=== PATIENT | female | born 1980 | race Caucasian/White ===

== ENCOUNTER → 2019-11-01 | Outpatient (CLI) | payer OTHER ==
[~2019-11-01] MED LIST: AMBIEN 5 MG TABL5 M1 PO; CIPRO500 MG PO; ZOFRAN ODT4 MG PO
== END ==
LOC: M.RAD 09:52
PROVIDERS: ATTEND Nurse Practitioner Family
DX: Z12.31 Encounter for screening mammogram for malignant neoplasm of breast (principal)

== ENCOUNTER → 2019-11-07 | Outpatient (CLI) | payer OTHER | LOC: M.ULTRA 10:45 | PROVIDERS: ATTEND Nurse Practitioner Family | DX: N63.11 Unspecified lump in the right breast, upper outer quadrant (principal); N60.01 Solitary cyst of right breast; N60.02 Solitary cyst of left breast; N63.22 Unspecified lump in the left breast, upper inner quadrant ==

== ENCOUNTER → 2019-11-14 | Outpatient (CLI) | payer OTHER ==
[~2019-11-14] MED LIST changes: +SUMATRIPTAN SU100 MG PO; +TRAMADOL 50 MG50 MG PO; +ZOLPIDEM TARTRA10 MG PO
--- NOTE | 2019-11-23 12:06 | PATH ---
[address] [address] PATHOLOGY RPT PROCEDURE Name: PAT THEODORE Room: [facility]#: [id number] Admission: 11/14/19 Date of : 76 Discharge: Report #: [id number] Path Case #: [id number] [facility] Accession Number: [id number] . 01 Material submitted: . breast - RIGHT BREAST MASS, 10:00, 5CMFN. Modifiers: right, 10:00 . 01 Clinical history: . RIGHT BREAST MASS 3.39 x 3.48 x 2.80 cm . 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 - DUCTAL CARCINOMA IN SITU (DCIS), NUCLEAR GRADE III, COMEDO TYPE WITH "LOBULAR CANCERIZATION". SEE COMMENT. . . Surgical Pathology Cancer Case Summary . Protocol posting date: March 2019 . INVASIVE CARCINOMA OF THE BREAST: Biopsy . Procedure ___ Other (specify): Image-guided core biopsies . Specimen Laterality ___ Right . Tumor Site ___ Clock position: 10 o'clock ___ Distance from nipple: 5 cm . Tumor Size ___ Greatest dimension of largest invasive focus >1 mm: at least 16 mm . Histologic Type ___ Invasive carcinoma of no special type (ductal) . Histologic Grade (Juan Histologic Score) . Glandular (Acinar)/Tubular Differentiation ___ Score 3 (<10% of tumor area forming glandular/tubular structures) . Nuclear Pleomorphism ___ Score 3 (vesicular nuclei, often with prominent nucleoli, exhibiting marked variation in size and shape, occasionally [place] [address] PATHOLOGY RPT PROCEDURE Name: PAT THEODORE Room: [facility]#: [id number] Admission: 11/14/19 Date of : 76 Discharge: Report #: [id number] Path Case #: [id number] bizarre forms) . Mitotic Rate ___ Score 3 . Overall Grade ___ Grade 3 (scores of 8 or 9) . Ductal Carcinoma In Situ (DCIS) ___ Present . Architectural Patterns ___ Comedo . Nuclear Grade ___ Grade III (high) . Necrosis ____ Present, central (expansive "comedo" necrosis) . Lymphovascular Invasion ___ Present . Microcalcifications ___ Not identified . Ancillary Studies: . Biomarker Studies ___ Pending on A1 . (ARACELI:jacque; 11/15/2019) QMS 11/15/2019 1418 Local . 02 Comment: Approximately 95% of the submitted tissues are involved by invasive neoplasm. Breast tumor profile studies are pending on A1 and will be the subject of an addendum report. Reviewed with Dr. Jeremy Segal, who agrees with the diagnosis. Patricia (acting [facility] Breast Navigator) notified at approximately 1150 on 11/15/2019. . (ARACELI:jacque; 11/15/2019) . 02 Addendum: . Special studies report received from [facility], [address] [place] [address], [address], [place], [address], on case [id number], labeled with their number [id number], dated 11/19/2019. [place] [address] PATHOLOGY RPT PROCEDURE Name: PAT THEODORE [id number] Admission: 11/14/19 Date of : 76 Discharge: Report #: [id number] Path Case #: [id number] Breast/Prognostic Marker Analysis . Specimen Site: Rt Breast Mass, 10:00, 5 CmFN, Image-Guided Core Biopsies, Breast Cancer Specimen ID #: [id number] . ER (Estrogen Receptor) Present/Positive Percent: 2.00% Analysis: Manual Comments: Staining intensity: Weak The carcinoma in this sample has a low level (1-10%) of ER expression by IHC. There are limited data on the overall benefit of endocrine therapies for patients with low level (1-10%) ER expression, but they currently suggest possible benefit, so patients are considered eligible for endocrine treatment. There are data that suggest invasive cancers with these results are heterogeneous in both behavior and biology and often have gene expression profiles more similar to ER-negative cancers. Case reviewed with Dr Zeynep Cisneros with concurrence. . . MO (Progesterone Receptor) Absent/Negative Percent: 0.00 Analysis: Manual . HER2 Not Over-Expressed Score: 1+ Analysis: Manual . Ki-67 High Proliferation Percent: 80.00% Analysis: Manual . Time to Fixation (Cold Ischemic Time): Immediately Duration of Fixation: Between 6 and 72 hours Type of Fixative: 10% Neutral Buffered Formalin . . Comments: ER/PgR testing at [facility] is performed in compliance with the ASCO/CAP Clinical Practice Guidelines. If the result for ER is less than 1% it is reported as Negative; if the ER result is 1-10% it is reported as Low Positive; if the ER result is greater than 10% it is reported as Positive. If the result for PgR is less than 1% it is reported as Negative; if the PgR result is equal to or greater than 1%, it [place] [address] PATHOLOGY RPT PROCEDURE Name: PAT THEODORE Room: [facility] Jeremias#: [id number] Admission: 11/14/19 Date of : 76 Discharge: Report #: [id number] Path Case #: [id number] . REF: Rona KH, Niraj EH, et al: Estrogen and Progesterone Receptor Testing in Breast Cancer. ASCO/CAP Guideline Update. DOI 10.5858/arpa.1450-3788-OD. . Whole slide image capture is performed using [employer]) platform. Image analysis, if ordered, is performed using [employer] software. . at [employer]. Swapnil Aviles MD Pathologist . Methodology The HER2 Receptor protein expression is analyzed using the [place] HER2 rabbit monoclonal antibody (clone 4B5). This assay is used for diagnostic determination of the HER2 protein over-expression in paraffin embedded, formalin fixed breast cancer tissue on the [place] Benchmark. The specimen is processed using a secondary antibody-HRP conjugate detection system. The membrane staining of the tumor is determined either by manual score or image analysis. This antibody is intended for in vitro diagnostic use. The score is reported as 0, 1+, 2+, or 3+. This test is used for clinical purposes. . A rabbit monoclonal antibody (clone SP1) that recognized the Estrogen Receptor is used to perform immunohistochemistry on routinely fixed (formalin) paraffin embedded tissue on the [place] Benchmark. The specimen is processed using a secondary antibody-HRP conjugate detection system. The percentage of stained tumor nuclei is determined either manually or by image analysis. This test is intended for in vitro diagnostic use. This test is used for clinical purposes. . A rabbit monoclonal antibody (clone 1E2) that recognized the Progesterone Receptor is used to perform immunohistochemistry on routinely fixed (formalin) paraffin embedded tissue on the [place] Benchmark. The specimen is processed using a secondary antibody-HRP conjugate detection system. The percentage of stained tumor nuclei is determined either manually or by image analysis. This test is intended for in vitro diagnostic use. This test is used for clinical purposes. . A rabbit monoclonal antibody (clone 30-9) that recognized Ki67 is used to perform immunohistochemistry on routinely fixed (formalin) paraffin embedded tissue on the [place] Benchmark. The specimen is processed using a secondary antibody-HRP conjugate detection system. The percentage of stained tumor nuclei is determined either manually or by image analysis. This test is intended for in vitro diagnostic use. This test is used for [place] [address] PATHOLOGY RPT PROCEDURE Name: PAT THEODORE Room: [facility]#: [id number] Admission: 11/14/19 Date of : 76 Discharge: Report #: [id number] Path Case #: [id number] Intended Use: This antibody is intended for in vitro diagnostic (IVD) use. HER2 (4B5) is a rabbit monoclonal antibody intended for the semi-quantitative detection of HER2 antigen in sections of formalin-fixed, paraffin embedded normal and neoplastic tissue. . This antibody is intended for in vitro diagnostic (IVD) use. Estrogen Receptor (ER) (SP1) is a rabbit monoclonal antibody (IgG) that is intended for the qualitative detection of estrogen receptor (ER) antigen in sections of formalin-fixed, paraffin-embedded tissue. ER is a rabbit monoclonal antibody that recognizes human estrogen receptor alpha. . This antibody is intended for in vitro diagnostic (IVD) use. Progesterone Receptor (MO) (1E2) is a rabbit monoclonal antibody (IgG) that is intended for the qualitative detection of progesterone receptor (MO) antigen in sections of formalin fixed, paraffin embedded tissue. MO is a rabbit monoclonal antibody that recognizes the A and B forms of the human progesterone receptor. . This antibody is intended for in vitro diagnostic (IVD) use. Ki-67 (30-9) is a rabbit monoclonal antibody (IgG) directed against C-terminal portion of Ki-67 antigen. Staining for Ki-67 can be used to aid in assessing the proliferative activity of normal and neoplastic tissue. Ki-67 is a nuclear protein expressed in proliferating cells. During the cell cycle, the Ki-67 antigen is present in the G1, S, G2 and M phase but is absent in the G0 (quiescent phase). . . Disclaimer: This Test was performed by [facility] at [address], [place] [address], [place], [address]. . [facility] is a business unit of [employer] a wholly-owned subsidiary of [employer]. . This assay has not been validated on decalcified tissues. Results should be interpreted with caution if this specimen was decalcified given the likelihood of false negativity on decalcified specimens. . Any image(s) that accompany this report is/are a telemarketing sales representative image(s) only and should not be used to render a diagnosis. . This interpretation is contingent on the specimen and the clinical information received. . For any special tests/stains performed, known positive cells or tissues are tested with each marker and examined to ensure positivity. Positive and negative internal controls, if present[place] [address] PATHOLOGY RPT PROCEDURE Name: PAT THEODORE Room: [facility]#: [id number] Admission: 11/14/19 Date of : 76 Discharge: Report #: [id number] Path Case #: [id number] . This analysis is an adjunct to the evaluation of the referring physician and does not represent a final diagnosis. . The immunohistochemistry tests performed at [facility] [email or web address] were validated on tissue fixed in 10% neutral buffered formalin. The performance characteristics of the tests performed on tissue processed in other fixatives is not known. . HER2 testing at [facility] is performed in compliance with the 2018 updated ASCO/CAP Clinical Practice Guideline Focused Update. If the result is EQUIVOCAL (2+), it must be confirmed by an alternative assay such as FISH or Dual LEXI. REF: Karin CHOUDHURY, ELIJAH Healy et al: Human Epidermal Growth Factor Receptor 2 Testing in Breast Cancer: ASCO/CAP Clinical Practice Guideline Focused Update. J Clin Oncol 36:3165-9464, 2018. . HER2 and ER/MO ASCO/CAP guidelines require fixation in neutral buffered formalin for a minimum of 6 and a maximum of 72 hours. Fixation times less than 6 hours may not adequately preserve cell proteins. Fixation times longer than 72 hours may cause excess cross-linking of proteins reducing the antigen available for staining. Either scenario can cause reduced staining; hence false negative results are possible and should be considered for these situations if the HER2 IHC score is less than 3+ or ER or MO is negative (no staining or <1% positive). It is recommended that specimens fixed longer than 72 hours with HER2 IHC scores less than 3+ be confirmed by HER2 FISH or Dual LEXI. The time from biopsy/excision to fixation in formalin (cold ischemic time) must be less than 1 hour. Time to fixation (cold ischemic time) greater than 1 hour should be interpreted with caution. HER2 testing, mainly HER2 by FISH, is particularly vulnerable since excessive cold ischemic time results in preferential loss of HER2 probe signals that may lead to false negative results. . SCORE STAINING PATTERN IN TUMOR CELLS INTERPRETATION RESULTS 0 No staining observed or incomplete, faint membrane staining in less than or equal to 10% of tumor cells. Negative 1+ Incomplete, faint membrane staining in greater than 10% of tumor cells. Negative 2+ Weak to moderate complete membrane staining observed in greater than 10% of tumor cells. Equivocal* *Must be confirmed by alternative assay (IHC/FISH/Dual LEXI) 3+ Intense, complete membrane staining in greater than 10% [place] [address] PATHOLOGY RPT PROCEDURE Name: PAT THEODORE Room: [facility]#: [id number] Admission: 11/14/19 Date of : 76 Discharge: Report #: [id number] Path Case #: [id number] Positive . A complete copy of the report is on file. . Professional and Technical services performed by [facility] at [address] [address]. . (ARACELI:[facility] 11/20/2019) . [facility]/11/20/2019 Addendum Electronically Signed by Cecilio Cooper MD, Pathologist . 02 Diagnosis provided by: . Cecilio Cooper MD, Pathologist NPI- [id number] . 03 Electronically signed: . Cecilio Cooper MD, Pathologist NPI- [id number] . 01 Gross description: . The specimen is received in formalin, labeled "Pat Theodore, right breast biopsy 10:00 5cfn" and consists of 4 needle cores of pink-carvalho tissue measuring between 0.7 and 2.0 cm in length and 0.2 cm each in diameter which are entirely submitted in A1-A3. They were collected at 8:55 AM on 11/14/2019 and placed in formalin at 8:55 AM. The cold ischemic time is less than 1 minute and the total formalin fixation time is greater than 6 hours less than 72 hours. (SDY; 11/14/2019) SYU/SYU 11/15/2019 1153 Local . 02 Pathologist provided ICD-10: C50.911, D05.11 . 02 CPT . 430578 Specimen Comment: A courtesy copy of this report has been sent to [phone], [phone] Specimen Comment: [phone], Specimen Comment: Report sent to ,DR PRADO / DR RODRIGUEZ Performed at: [address], [place], [place] [id number] MD Yuval Aiken MD Phone: [phone] Performed at: [address] [address] [place], [place] [id number] MD Cecilio Cooper MD Phone: [phone] Performed at: [address] [address] PATHOLOGY RPT PROCEDURE Name: PAT THEODORE Room: [facility]#: [id number] Admission: 11/14/19 Date of : 76 Discharge: Report #: [id number] Path Case #: [id number] [address] [id number] MD Cecilio Cooper MD Phone: [phone]
== END ==
LOC: M.ULTRA 08:03
PROVIDERS: ATTEND Nurse Practitioner Family
DX: C50.911 Malignant neoplasm of unspecified site of right female breast (principal); R92.1 Mammographic calcification found on diagnostic imaging of breast

== ENCOUNTER → 2019-11-26 | Outpatient (CLI) | payer OTHER ==
--- NOTE | 2019-11-26 12:57 | 2DMMODE ---
[place] [address] 2 D/M-MODE ECHOCARDIOGRAM Name: JAN LEON Room: [facility]#: [id number] Admission: 11/26/19 Attend Phys: Keyon Alexis MD Discharge: Date of : 76 Date of Service: 11/26/19 1256 Report #: [id number] THIS REPORT FOR: cc: LEONID PRADO NP, KATHERINE J. NP Holkins, John M. MD [facility] ~ APPROVED REPORT Study performed: 11/26/2019 09:16:41 EXAM: Comprehensive 2D, Doppler, and color-flow Echocardiogram Patient Location: Out-Patient BSA: 1.83 HR: 72 bpm BP: 110/70 mmHg Other Information Study Quality: Good Indications Chemo 2D Dimensions IVSd: 8.75 (7-11mm) LVOT Diam: 20.40 (18-24mm) LVDd: 40.65 mm PWd: 8.16 (7-11mm) Ascending Ao: 27.64 (22-36mm) LVDs: 23.75 (25-40mm) Aortic Root: 24.27 mm Volumes Left Atrial Volume (Systole) LA ESV Index: 11.80 mL/m2 Aortic Valve AoV Peak Ari.: 1.01 m/s AO Peak Gr.: 4.12 mmHg LVOT Max P.72 mmHg AO Mean Gr.: 2.12 mmHg LVOT Mean P.73 mmHg LVOT Max V: 0.96 m/s AO V2 VTI: 19.39 cm LVOT Mean V: 0.60 m/s REMEDIOS (VTI): 3.29 cm2 LVOT V1 VTI: 19.53 cm Mitral Valve E/A Ratio: 1.15 [place] [address] 2 D/M-MODE ECHOCARDIOGRAM Name: JAN LEON Room: [facility]#: [id number] Admission: 11/26/19 Attend Phys: Keyon Alexis MD Discharge: Date of : 76 Date of Service: 11/26/19 1256 Report #: [id number] MV Decel. Time: 221.70 ms MV E Max Ari.: 0.54 m/s MV PHT: 64.29 ms MVA (PHT): 3.42 cm2 TDI E/Lateral E': 3.18 E/Medial E': 4.50 Medial E' Ari.: 0.12 m/s Lateral E' Ari.: 0.17 m/s Pulmonary Valve PV Peak Ari.: 0.76 m/s PV Peak Gr.: 2.30 mmHg Tricuspid Valve RAP Estimate: 5.00 mmHg TR Peak Gr.: 21.57 mmHg RVSP: 26.57 mmHg PA Pressure: 26.57 mmHg Left Ventricle The left ventricle is normal size. There is normal LV segmental wall motion. There is normal left ventricular wall thickness. Left ventricular systolic function is normal. The left ventricular ejection fraction is within the normal range. LVEF is 55-60%. The left ventricular diastolic function is normal. Right Ventricle The right ventricle is normal size. The right ventricular systolic function is normal. Atria The left atrium size is normal. The right atrium size is normal. Aortic Valve The aortic valve is normal in structure. No aortic regurgitation is present There is no aortic valvular stenosis. Mitral Valve The mitral valve is normal in structure. Trace mitral regurgitation. No evidence of mitral valve stenosis. Tricuspid Valve The tricuspid valve is normal in structure. There is no tricuspid valve regurgitation noted[place] [address] 2 D/M-MODE ECHOCARDIOGRAM Name: EDWARDKIMJAN A Room: [facility]#: [id number] Admission: 11/26/19 Attend Phys: Keyon Alexis MD Discharge: Date of : 76 Date of Service: 11/26/19 1256 Report #: [id number] The pulmonary valve is normal in structure. There is no pulmonic valvular regurgitation. Great Vessels The aortic root is normal in size. IVC is normal in size and collapses >50% with inspiration. Pericardium There is no pericardial effusion. <Conclusion> The left ventricle is normal size. There is normal left ventricular wall thickness. Left ventricular systolic function is normal. The left ventricular ejection fraction is within the normal range. LVEF is 55-60%. The left ventricular diastolic function is normal. The left atrium size is normal. The aortic valve is normal in structure. The mitral valve is normal in structure. Trace mitral regurgitation. The tricuspid valve is normal in structure. IVC is normal in size and collapses >50% with inspiration. There is no pericardial effusion. There is normal LV segmental wall motion. <ELECTRONICALLY SIGNED> By: Adelso Stout MD, FACC 11/26/19 1256 1256 1256 Adelso Stout MD, FACC /INF
== END ==
LOC: M.CRD 09:00
PROVIDERS: ATTEND Internal Medicine Hematology & Oncology
DX: Z01.812 Encounter for preprocedural laboratory examination (principal); Z20.828 Contact with and (suspected) exposure to other viral communicable diseases; C50.919 Malignant neoplasm of unspecified site of unspecified female breast; I74.9 Embolism and thrombosis of unspecified artery; Z51.81 Encounter for therapeutic drug level monitoring

== ENCOUNTER → 2019-11-27 | Outpatient (CLI) | payer OTHER | LOC: M.MRI 13:30 | PROVIDERS: ATTEND Surgery | DX: C50.919 Malignant neoplasm of unspecified site of unspecified female breast (principal); N63.11 Unspecified lump in the right breast, upper outer quadrant ==

== ENCOUNTER → 2019-11-29 | Day surgery (SDC) | payer OTHER ==
[2019-11-29 09:10] LABS: HEMATOCRIT 35.3 % (37.0-47.0); HEMOGLOBIN 11.8 gm/dL (12.0-15.0)
--- NOTE | 2019-11-30 13:44 | OP ---
[address] [address] OPERATIVE REPORT Name: PADMINIXIAOJAN Room: [facility]#: [id number] Admission: 11/29/19 Attend Phys: Andressa Mchugh DO Discharge: Date of : 76 Report #: [id number] THIS REPORT FOR: //name// cc: LEONID PRADO NP, KATHERINE J. NP ~ CC: Andressa PRADO NP DICTATED BY: Wilbur Morrell DO DATE OF SERVICE: 11/29/2019 PREOPERATIVE DIAGNOSIS: Triple negative breast cancer. POSTOPERATIVE DIAGNOSIS: Triple negative breast cancer. SURGEON: Andressa Mchugh DO MARKING ROOM SUPERVISOR: Wilbur Morrell, PGY5 and [place] MS3. OPERATION PERFORMED: Left internal jugular port placement with ultrasound and fluoroscopic guidance and surgeon interpretation of images. ANESTHESIA: General and local. ESTIMATED BLOOD LOSS: 10 mL. SPECIMEN: None. COMPLICATIONS: None. FLUOROSCOPY TIME: 48 seconds. INDICATIONS: The patient is a 38-year-old female with a recent diagnosis of triple negative breast cancer of the right breast. Due to her negative hormone status, she will be scheduled for preoperative neoadjuvant chemotherapy for this reason. She was informed of the risks and benefits of port placement with risks including but not limited to bleeding, infection, pneumothorax, arterial access. She understood these risks and decided to proceed with surgery. TECHNIQUE: After informed consent was obtained, the patient was brought to the operating room and placed in supine position. SCDs were on and running. Preoperative antibiotics were given. The patient was prepped and draped in the usual sterile fashion. A surgical pause was held to confirm proper patient and procedure. 0.5% Marcaine was injected at the left neck. [place] [address] OPERATIVE REPORT Name: JAN LEON Room: [facility]#: [id number] Admission: 11/29/19 Attend Phys: Andressa Mchugh DO Discharge: Date of : 76 Report #: [id number] to access the left internal jugular vein. A guidewire was inserted through the needle. The needle was removed and the wire was checked with fluoroscopy and had gone down the jugular vein and transversed across to the right subclavian. Under fluoroscopic guidance, the wire was withdrawn and redirected towards the superior vena cava. The left chest port was then planned. Planned incision site was injected with 0.5% Marcaine, #15 blade was used to create a 3 cm incision in a transverse fashion. Cautery was used for hemostasis. The port was bluntly developed to an adequate size to accommodate the port. 0 Prolene was then used to place stitches through the right and left sides of the port to secure in place. An 11 blade was used to create a skin incision over the wire and the left neck. The sheath was placed over the wire and confirmed with fluoroscopy. The 8-Georgian Groshong catheter was then inserted through the sheath. The breakaway catheter was removed maintaining the Groshong catheter in placed. The Groshong catheter was then tunneled from the neck over the clavicle to the created pocket. The catheter was then removed under live fluoroscopic guidance until the tip of the catheter was at the cavoatrial junction. The excess catheter tubing was then cut. The catheter was placed onto the port and the hub was secured. The port flushed and aspirated without any difficulties. The complete path of the port was visualized with fluoroscopy and confirmed to be in excellent position with no kinks. The port was then placed within the pocket. The 0 Prolene stitches were tied down. The port was flushed with 3 mL of 500 units per mL heparin. The wound was then closed in layered fashion using 3-0 Vicryl, 4-0 Monocryl. A 0.5% Marcaine was injected. The wound was then cleansed and dressed with Dermabond. The patient was emerged from anesthesia and transferred to PACU in stable condition. A confirmatory chest x-ray was obtained. All counts were correct. There were no complications. <ELECTRONICALLY SIGNED> By: Andrsesa Mchugh DO 11/30/19 1344 1136 1240Chjaneth Mchugh DO /nt
== END | disposition home or self-care (01) ==
LOC: M.SUR 08:16
PROVIDERS: ATTEND Surgery
DX: Z45.2 Encounter for adjustment and management of vascular access device (principal); C50.912 Malignant neoplasm of unspecified site of left female breast; Z79.899 Other long term (current) drug therapy; Z87.440 Personal history of urinary (tract) infections; Z85.3 Personal history of malignant neoplasm of breast

== ENCOUNTER → 2020-04-28 | Outpatient (CLI) | payer OTHER ==
[~2020-04-28] MED LIST changes: +EMERGEN-C 500500 MG PO; +FLONASE 0.05%50 MCG INH; +LOPRESSOR50 MG PO; +OXYCODONE HCL 55 MG PO; +ZYRTEC10 M4 PO
== END | disposition home or self-care (01) ==
LOC: M.LAB 09:10 → M.ULTRA 09:10
PROVIDERS: ATTEND Surgery
DX: N63.10 Unspecified lump in the right breast, unspecified quadrant (principal); M79.89 Other specified soft tissue disorders; Z98.890 Other specified postprocedural states; Z79.899 Other long term (current) drug therapy; Z85.3 Personal history of malignant neoplasm of breast; Z20.822 Contact with and (suspected) exposure to COVID-19

== ENCOUNTER → 2020-05-01 | Day surgery (SDC) | payer OTHER ==
--- NOTE | 2020-05-01 10:21 | EKG ---
[place] [address] ELECTROCARDIOGRAM REPORT Name: JAN LEON Room: [facility]#: [id number] Admission: 05/01/20 Attend Phys: Andressa Mchugh, Discharge: Date of : 76 Date of Service: 05/01/20 0739 Report #: [id number] THIS REPORT FOR: //name// [facility] Test Date: 2020-05-01 Test Time: 07:39:19 Pat Name: JAN LEON Department: Room: Gender: F Director Federal: : 1980 Requested By: Damian Mccoy Order Number: [id number] Walt MD: Jason Whaley Measurements Intervals [place] Rate: 76 P: 67 VA: 203 QRS: 28 QRSD: 73 T: 59 QT: 356 QTc: 401 Interpretive Statements Sinus rhythm Borderline prolonged VA interval Compared to ECG 02/08/2016 18:06:54 Sinus tachycardia no longer present Electronically Signed On 05-01-2020 10:21:14 CDT by Jason Whaley [email or web address] <ELECTRONICALLY SIGNED> By: Jason Whaley MD, [facility] 05/01/20 1021 0739 0739 Jason Whaley MD, [facility] /EPI
--- NOTE | 2020-05-01 15:05 | OP ---
[address] [address] OPERATIVE REPORT Name: JAN LEON Micheal Room: [facility]#: [id number] Admission: 05/01/20 Attend Phys: Andressa Mchugh DO Discharge: Date of : 76 Report #: [id number] THIS REPORT FOR: cc: LEONID PRADO NP, KATHERINE J. NP ~ Andressa Mchugh DO DICTATED BY: Wilbur Morrell DO DATE OF SERVICE: 05/01/2020 PREOPERATIVE DIAGNOSIS: Right breast triple negative breast cancer, status post adjuvant chemotherapy. POSTOPERATIVE DIAGNOSIS: Right breast triple negative breast cancer, status post adjuvant chemotherapy. FINDINGS: Hologic tag in the right breast approximately 1 mm from the fascia. Fascia was marked with 3 small clips on the pectoral fascia. Scintigraphic uptake at the nipple was 7800. Scintigraphic uptake on the sentinel lymph node was 289. Second node was blue, but not Scintigraphically hot. SURGEON: Andressa Mchugh DO CO-SURGEON: Wilbur Morrell, PGY5 BUILDING CUSTODIAL SUPERVISOR: MS Gregoria3. OPERATION PERFORMED: Right breast tag-guided lumpectomy and right superficial sentinel lymph node dissection. ANESTHESIA: General, local. ESTIMATED BLOOD LOSS: 20 mL. SPECIMEN: Right breast lumpectomy and right sentinel lymph node x2. COMPLICATIONS: None. CONDITION: Stable. DISPOSITION: PACU to home. INDICATIONS: The patient is a 39-year-old female with history of right breast triple negative breast cancer. She was given a Port-A-Cath and received neoadjuvant chemotherapy. She represented after imaging for breast conservation [address] [address] OPERATIVE REPORT Name: KIM LEONPRO Burton Room: [facility]#: [id number] Admission: 05/01/20 Attend Phys: Andressa Mchugh DO Discharge: Date of : 76 Report #: [id number] therapy. She was informed of the risks and benefits of lumpectomy and sentinel lymph node biopsy with risks including but not limiting to bleeding, infection, need for margin reexcision. She understood these risks and decided to proceed with surgery. TECHNIQUE: After informed consent was obtained, the patient was brought to the operating room and placed in supine position. SCDs were on and running. Preoperative antibiotics were given. General anesthesia was administered with ET tube. The patient had Lymphazurin blue injected circumferentially around the right nipple. The patient was then reprepped and draped in the usual sterile fashion. A surgical pause was held to confirm proper patient and procedure. The NEON Concierge guided system was used to plan incision. A right periareolar curvilinear incision was planned. The 0.5% Marcaine was injected at the incision site. A #15 blade was used to make the skin incision. Dissection was carried through the subcutaneous fat using cautery. The NEON Concierge radio-guided tag system was used to guide dissection towards the seed, circumferential dissection around the seed was performed using cautery. Dissection was carried down to the level of the pectoral fascia on the deep margin. The tag itself was only about 1 mm from the fascia. The deep margin was right along the fascia. Once completely circumferentially around the specimen was transected and maintained in orientation, a short stitch was placed superior and a long stitch placed lateral to orient the specimen. This was placed in a TransPec container and sent to Radiology, which confirmed both the clip and the hologic seed were present in the specimen. This wound was irrigated and temporarily packed while the sentinel lymph node biopsy was performed. The Neoprobe was used to plan the incision site. A #15 blade was used to create the curvilinear incision in the right axilla after 0.5% Marcaine injection. Combination of cautery and blunt dissection were used to dissect into the axilla after the clavipectoral fascia was opened. The Neoprobe was used to guide dissection. Once the hot node was identified, it was grasped with an Allis and carefully dissected free from the surrounding tissue. There were 2 nodes obtained. The first node had an uptake of a maximum of 289. The second node did not have any uptake though was blue, both were sent separately as specimen. The axilla was irrigated. It was hemostatic. Both of the wound cavities were filled with FloSeal. They were closed in a layered fashion using 3-0 Vicryl, 4-0 Monocryl. Wounds were both cleansed and dressed with Dermabond. The patient was emerged from anesthesia and transferred to PACU in stable condition. All counts were correct. <ELECTRONICALLY SIGNED> By: Andressa Mchugh DO 05/01/20 1505 1138 1227Chjaneth Mchugh DO /nt
--- NOTE | 2020-05-06 12:07 | PATH ---
[address] [address] PATHOLOGY RPT PROCEDURE Name: PAT THEODORE Room: [facility]#: [id number] Admission: 05/01/20 Date of : 76 Discharge: Report #: [id number] Path Case #: [id number] [facility] Accession Number: [id number] . 01 Material submitted: . PART A: breast - RIGHT BREAST . Modifiers: right PART B: lymph node - SENTINEL LYMPH NODE #1 RIGHT BREAST. Modifiers: #1, BREAST, right PART C: lymph node - SENTINEL LYMPH NODE #2 RIGHT BREAST. Modifiers: #2, BREAST, right . 01 Clinical history: . TRIPLE NEGATIVE MALIGNANT NEOPLASM RIGHT BREAST DS/LUMPECTOMY . 02 Diagnosis: A. Right breast: - Breast tissue with evidence of prior biopsy site including localization clip, features attributable to therapy including scattered histiocytes in association with fibrosis, usual duct epithelial hyperplasia, duct ectasia, focal chronic inflammation, incidental capillary hemangioma and scattered luminal calcifications with no residual malignancy or atypia. See comment. . B. [place] lymph node #1 right breast: - One benign lymph node. See comment. . C. [place] lymph node #2 right breast: - Two benign lymph nodes (0/2). See comment. (ARACELI:[facility] 05/05/2020) QTP 05/05/2020 1800 Local . 02 Comment: This patient had a right breast mass 10:00 5 cm from nipple image guided core biopsy performed around 11/14/2019 which showed infiltrating ductal adenocarcinoma, high-grade, with lymphovascular invasion and breast tumor profile studies showed: ER 2%, KS 0, Her2 1+/not over expressed, Ki-67 80% ([phone]) and per review of Dr. Gala Mchugh's operative report dated 05/01/2020, the patient received post-adjuvant chemotherapy. . There is no residual malignancy or atypia in the lumpectomy specimen (A) and there is no histologic evidence of current or remote involvement of any of the three lymph nodes (B and C). Properly controlled keratin AE1/AE3 immunohistochemical stains performed on B1 and C1 are negative for metastatic tumor. (ARACELI:[facility] 05/05/2020) . 02 Electronically signed: [place] [address] PATHOLOGY RPT PROCEDURE Name: PAT THEODORE Room: [facility] DarianSudheer#: [id number] Admission: 05/01/20 Date of : 76 Discharge: Report #: [id number] Path Case #: [id number] Cecilio Cooper MD, Pathologist NPI- [id number] . 01 Gross description: . A. Fixative: Formalin Labeled: Right breast-short stitch superior long stitch lateral Specimen received: Burciaga-yellow lobular lumpectomy specimen Oriented: Yes, short stitch superior long stitch lateral Dimensions: 4.4 cm from superior to inferior, 6.9 cm from medial to lateral, and 1.6 cm from anterior to posterior Weight: 29 The specimen is inked as follows: superior-red inferior-blue anterior-green posterior-black lateral-orange medial-yellow Sectioned from: Lateral to medial Number of slices: 16 Lesion: 2.8 x 2.4 x 1.1 cm Lesion location: Slices 4-10 Lesion to margins: 0.4 cm to superior 1.1 cm to inferior 0.9 cm to anterior 0.2 cm to posterior 1.8 cm to lateral 2.4 cm to medial Biopsy clip: Court Magistrate clip Yes, slice 5 Uninvolved breast parenchyma: Minimal lobular, burciaga-yellow with abundant burciaga-white fibrous breast parenchyma with scattered possible calcifications located in slices 7-16 . The specimen is entirely submitted as follows: A1-A4. Slice 1 (lateral perpendicular margin) A5-A6. Slice 2 A7-A8. Slice 3 A9-A10. Slice 4 A11-A12. Slice 5 A13-A 14. Slice 6 A15-A16. Slice 7 A17-A18. Slice 8 A19-A20. Slice 9 A21-A22. Slice 10 A23-A24. Slice 11 A25-A26. Slice 12 A27-A28. Slice 13 A29-A30. Slice 14 [place] [address] PATHOLOGY RPT PROCEDURE Name: PAT THEODORE Room: [facility]#: [id number] Admission: 05/01/20 Date of : 76 Discharge: Report #: [id number] Path Case #: [id number] A31-A32. Slice 15 A33-A35. Slice 16 (medial perpendicular margin) . . The specimen is removed from the patient at 1025 and not stated when placed in formalin on May 01, 2020. The specimen is removed from formalin at 1850 on May 02, 2020. The specimen is in formalin for greater than 6 hours and less than 72 hours. . B. Received in formalin labeled "Pat Theodore, sentinel lymph node #1 right breast" is an irregular, burciaga-yellow portion of fibrous tissue measuring 2.1 x 1.1 x 0.7 cm. The specimen is palpated to reveal an irregular, burciaga yellow possible lymph node measuring 1.4 x 1.1 x 0.6 cm. The possible lymph node is serially sectioned perpendicular to long axis and submitted entirely in cassette B1. . C. Received in formalin labeled "Pat Theodore, sentinel lymph node #2 right breast" is an irregular, burciaga-yellow portion of fibroadipose tissue measuring 2.1 x 1.1 x 0.5 cm. The specimen is palpated to reveal 2 possible lymph nodes measuring 1.1 x 0.9 x 0.7 cm and 1.1 x 0.7 x 0.4 cm.. One possible lymph node is inked black and the other is inked blue. Each possible lymph node is serially sectioned perpendicular to long axis and submitted entirely in cassette C1.([facility]; 05/02/2020) GZA/GZA 05/05/2020 1752 Local . 02 Pathologist provided ICD-10: N60.31, N60.42, N61.0 . 02 CPT . 148996, 653798, 988620, J40356 Specimen Comment: A courtesy copy of this report has been sent to [phone] Specimen Comment: [phone] Specimen Comment: Report sent to / DR PRADO Performed at: [address], [place], [place] [id number] MD Anjel Art MD Phone: [phone] Performed at: [address] [facility] [address] [address] [place], [place] [id number] MD Cecilio Cooper MD Phone: [phone]
== END | disposition home or self-care (01) ==
LOC: M.SUR 06:39
PROVIDERS: ATTEND Surgery
DX: N60.31 Fibrosclerosis of right breast (principal); N60.42 Mammary duct ectasia of left breast; N61.0 Mastitis without abscess; R59.0 Localized enlarged lymph nodes; D18.09 Hemangioma of other sites; Z98.890 Other specified postprocedural states; Z79.899 Other long term (current) drug therapy

== ENCOUNTER → 2020-06-19 | Day surgery (SDC) | payer OTHER ==
--- NOTE | 2020-06-20 15:24 | OP ---
[address] [address] OPERATIVE REPORT Name: JAN LEON Micheal Room: [facility]#: [id number] Admission: 06/19/20 Attend Phys: Andressa Mchugh DO Discharge: Date of : 76 Report #: [id number] THIS REPORT FOR: cc: LEONID PRADO NP, KATHERINE J. NP Brock, Christie M. DO ~ DOC #: [id number] Dictated by Wilbur Morrell DO DATE OF SURGERY: 06/19/2020 PREOPERATIVE DIAGNOSIS: Port-A-Cath. POSTOPERATIVE DIAGNOSIS: Port-A-Cath. FINDINGS: Bard 8-Prydeinig Groshong port in the left chest with catheter tip intact. SURGEON: Andressa Mchugh DO CO-SURGEON: Wilbur Morrell, PGY5 FINANCIAL ASSISTANCE ADVISOR: MS [id number] OPERATION PERFORMED: Port removal. ANESTHESIA: General and local. ESTIMATED BLOOD LOSS: 2 mL. SPECIMEN: Port not sent for pathology. COMPLICATIONS: None. DISPOSITION: PACU to home. INDICATIONS: The patient is a 39-year-old female with history of triple negative breast cancer that was treated with neoadjuvant chemotherapy. She was no longer using her port and wished for removal. This was cleared by Oncology. She was informed of the risks and benefits of port removal and decided to proceed with surgery. DESCRIPTION OF PROCEDURE: After informed consent was obtained, the patient was brought to the operating room and placed in the supine position. SCDs were on and running. Preoperative antibiotics were given. Anesthesia was administered with an LMA. The patient was prepped and draped in the usual sterile fashion. A surgical pause was held to confirm proper patient and procedure. The previous [address] [address] OPERATIVE REPORT Name: JAN LEON Room: [facility]#: [id number] Admission: 06/19/20 Attend Phys: Andressa Mchugh DO Discharge: Date of : 76 Report #: [id number] left infraclavicular incision was opened with a 15 blade. Dissection was carried through the dermis using cautery. Dissection was carried through the subcutaneous fat until the hub of the port was encountered. Blunt dissection was used to free the port from the capsule. A 2-0 Prolene sutures were identified, cut and removed from either of the superior corners of the port. The port was delivered from the incision and the catheter was withdrawn. Direct pressure on the IJ was held. The pressure was held for an additional 2 minutes. The catheter tip was intact. There was no evidence of adherent clot. A 3-0 [address] was used to place a [id number] in the catheter tract site. Cautery was used for hemostasis. The wound was closed in a layered fashion using 3-0 Vicryl, 4-0 Monocryl. Skin was cleansed and dressed with Dermabond and an overlying pressure dressing. The patient was then emerged from anesthesia and transferred to the PACU in stable condition. All counts were correct. Wilbur Morrell DO CH/ANDRES <ELECTRONICALLY SIGNED> By: Andressa Mchugh DO 06/20/20 1524 1203 1222Cshiav Mchugh DO /nt
== END | disposition home or self-care (01) ==
LOC: M.SUR 08:20
PROVIDERS: ATTEND Surgery
DX: Z45.2 Encounter for adjustment and management of vascular access device (principal); Z85.3 Personal history of malignant neoplasm of breast; Z98.890 Other specified postprocedural states; Z79.899 Other long term (current) drug therapy

== ENCOUNTER → 2021-01-06 | Outpatient (CLI) | payer OTHER | LOC: M.CT 13:32 | PROVIDERS: ATTEND Orthopaedic Surgery | DX: S52.121A Displaced fracture of head of right radius, initial encounter for closed fracture (principal); S52.041A Displaced fracture of coronoid process of right ulna, initial encounter for closed fracture; S59.902A Unspecified injury of left elbow, initial encounter; M25.421 Effusion, right elbow; X58.XXXA Exposure to other specified factors, initial encounter; Y93.89 Activity, other specified; Y92.89 Other specified places as the place of occurrence of the external cause; Y99.8 Other external cause status ==

== ENCOUNTER → 2021-03-19 | Outpatient (CLI) | payer OTHER | LOC: M.RAD 02-27 10:00 | PROVIDERS: ATTEND Radiology Radiation Oncology | DX: C50.411 Malignant neoplasm of upper-outer quadrant of right female breast (principal); Z17.1 Estrogen receptor negative status [ER-]; N63.10 Unspecified lump in the right breast, unspecified quadrant; N64.89 Other specified disorders of breast ==